=== PATIENT | female | born 1980 | race Caucasian/White ===

== ENCOUNTER 2018-02-28 13:49 | Emergency (ER) | payer MEDICAID ==
--- NOTE | 2018-02-28 14:38 | EDM.PDOCBH ---
ED HPI GENERAL MEDICAL PROBLEM - General Chief Complaint: Behavioral/Psych Stated Complaint: SUICIDAL IDEATIONS Time Seen by Provider: 02/28/18 14:00 Source of Information: Reports: Patient History Limitations: Reports: No Limitations - History of Present Illness INITIAL COMMENTS - FREE TEXT/NARRATIVE: Patient is a 37-year-old female who presents today after having a nervous breakdown. Patient states she's been dealing with depression on and off since she was in her teenage years. States she had been on a antidepressant of unknown name approx. 7 years ago after being let off of work. She states as of recent she's been more stressed out with taking care of 4 kids, working 2 part- time jobs, and having continued financial issues. She states today she got a email stating there was insufficient funds within her bank account which made her have a panic attack. Patient states out of frustration she dug her fingernails into her forearm. This caused only superficial injury. Her mother, sister, and requested the patient be evaluated in the ED. Currently patient states symptoms are improving. At times she admits she thinks about killing herself. This is only a thought. States she would not go through with this. She has no plan in place. She has never attempted in the past. She does smoke marijuana one time every 3 months. Nothing as of recent. There is no alcohol use. She does not smoke. She denies any homicidal ideations or hallucinations. Other than depression, anxiety, and panic attacks she has no additional past medical history. Medications none. PCP none. 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 ED EXAM, BEHAVIORAL HEALTH - Physical Exam Exam: See Below Exam Limited By: No Limitations General Appearance: Alert, WD/WN, No Apparent Distress Ears: Hearing Grossly Normal Nose: Normal Inspection Throat/Mouth: Normal Voice, No Airway Compromise Head: Atraumatic, Normocephalic Neck: Normal Inspection, Supple, Non-Tender Respiratory/Chest: No Respiratory Distress, Lungs Clear, Normal Breath Sounds, No Accessory Muscle Use Cardiovascular: Normal Peripheral Pulses, Regular Rate, Rhythm, No Murmur Neurological: Alert, Normal Mood/Affect, CN II-XII Intact, Normal Cognition, No Motor/Sensory Deficits, Oriented x 3 Psychiatric: Alert, Normal Affect, Normal Cognition, Normal Mood, Oriented Skin Exam: Warm, Dry, Intact, Normal color, No rash COURSE, BEHAVIORAL HEALTH COMP - Course Vital Signs: Last Vital Signs Temp 97.4 F 02/28/18 13:58 Pulse 74 02/28/18 15:03 Resp 18 02/28/18 15:03 BP 102/75 02/28/18 15:03 Pulse Ox 100 02/28/18 15:03 Re-Assessment/Re-Exam: 1420 I have asked for staff to contact Dr. Morgan to speak about medication management. [address] Morgan. Suggested starting patient on prozac 10mg qam for one week and increase to 20 mg everyday thereafter. In addition suggested lorazepam 0.5mg twice a day as needed one week supple with 1 refill. See a provider at [facility] for continued treatment. May attempt to make an appt at his clinic in 4 to 6 wks once they start seeing patients again. Discussed plan with patient. She agrees with plan. Side effects of both medications printed out and discussed with patient. She had no additional questions or concerns. Return precautions discussed with patient and family present. Discharge instructions as documented. Departure - Departure Time of Disposition: 14:44 Disposition: Home, Self-Care 01 Condition: Good Clinical Impression: Depressive disorder, Anxiety, Suicidal ideations - Discharge Information Prescriptions: FLUoxetine [PROzac] 10 mg PO ASDIRECTED #60 cap LORazepam 0.5 mg PO BID PRN #14 tablet PRN Reason: Anxiety Instructions: Generalized Anxiety Disorder, Adult, Living With Depression, Suicidal Feelings: How to Help Yourself, Panic Attack Referrals: Cynthia Dillard PA [Physician [facility]] - Khurram Morgan MD [Physician] - [facility] [Outside] Forms: ED Department Discharge Additional Instructions: Will have you take Prozac 10 mg every a.m. for the first week then increase to 20 mg every day thereafter. Lorazepam 0.5 mg twice a day as needed for anxiety. One refill provided. Suggest no alcohol or marijuana use. Call and make an appointment to be evaluated at [facility] this coming week. Also make an appointment with Dr. Morgan telepsych provider. They should be reopening the clinic in 2 to4 wks. In the mean time suggest establishing medical care with a medical provider. Schedule an appt today or tomorrow. Please return if should have any new or worsening symptoms as discussed.
[2018-02-28 15:04] VITALS: BP 102/75
== END 2018-02-28 15:04 | disposition home or self-care (01) ==
LOC: JD.ED 13:49
DX: F41.8 Other specified anxiety disorders (principal); R45.851 Suicidal ideations; Z79.899 Other long term (current) drug therapy
CPT/HCPCS: 99284; 99285